=== PATIENT | female | born 1945 | race Caucasian/White ===

== ENCOUNTER 2016-07-15 11:26 | Emergency (ER) | payer OTHER ==
[~2016-07-15 11:26] MED LIST: ALBUTEROL17 GM INH; ASPIRIN81 MG PO; CELEXA PO; COUMADIN6 MG PO; DIFLUCAN200 MG PO; GLUCOPHAGE500 M1 PO; HYDROCODON-ACE1 EAC7 PO; HYDROCODONE-APA1 T55 PO; INCRUSE ELLI62.5 MCG INH; IPRAT-ALBUT 0.5-3 ML INH; LEVAQUIN250 MG PO; LISINOPRIL20 MG PO; LISINOPRIL5 MG PO; METOPROLOL SUCC25 MG PO; MILK OF MAGNESIA PO; MIRALAX17 GM DOB; NEO/POLYMYXIN/H10 M1 AU; OMEPRAZOLE40 M1 PO; PRAVASTATIN SOD40 MG PO; PREDNISONE10 MG PO; SPIRIVA18 MCG INH; VERAPAMIL HCL120 M1 PO
[2016-07-15 11:39] LABS: BASOPHIL# 0.1 X10e3 (0-0.3); BASOPHIL% 0.5 % (0-2.5); EOSINOPHIL# 0.1 X10e3 (0-0.7); EOSINOPHIL% 0.8 % (0.0-7.0); HEMATOCRIT 33.7 % (35.0-45.0); HEMOGLOBIN 11.1 gm/dL (12.0-16.0); LYMPHOCYTE# 1.8 X10e3 (1.0-3.5); LYMPHOCYTE% 15.3 % (17.0-45.0); MEAN CELL VOLUME 90.2 FL (83-96); MEAN CORPUSCULAR HEMOGLOBIN 29.7 PG (28-34); MEAN CORPUSCULAR HGB CONC 32.9 g/dL (30-36); MEAN PLATELET VOLUME 7.4 FL (6.5-11.5); MONOCYTE# 1.2 X10e3 (0-1.0); MONOCYTE% 10.6 % (3.0-12.0); NEUTROPHIL# 8.5 X10e3 (1.5-7.1); NEUTROPHIL% 72.8 % (40-75); PLATELET COUNT 304 X10e3 (140-420); RED BLOOD COUNT 3.74 X10e (3.90-5.30); RED CELL DISTRIBUTION WIDTH 16.5 % (11.0-15.5); WHITE BLOOD COUNT 11.7 X10e3 (4.0-10.5)
[2016-07-15 11:42] LABS: DIFF IND NO
[2016-07-15 12:05] LABS: PARTIAL THROMBOPLASTIN TIME 56.9 SECONDS (23.5-31.3)
[2016-07-15 12:08] LABS: PROTHROMBIN TIME (PATIENT) 79.3 SECONDS (9.6-11.5)
[2016-07-15 12:13] LABS: BILIRUBIN,TOTAL 0.4 mg/dL (0.2-2.0); GLOM FILT RATE Estimated 58.3 mL/min (>60); POTASSIUM 3.5 mmol/L (3.5-5.1)
== END 2016-07-15 12:41 | disposition home or self-care (01) ==
LOC: CED 11:26
PROVIDERS: Emergency Medicine; Student in an Organized Health Care Education/Training Program
DX: R79.1 Abnormal coagulation profile (principal); I10 Essential (primary) hypertension; E11.9 Type 2 diabetes mellitus without complications; I48.91 Unspecified atrial fibrillation; Z90.710 Acquired absence of both cervix and uterus; Z88.0 Allergy status to penicillin
CPT/HCPCS: 36415; 80053; 85025; 85610; 85730; 99283

== ENCOUNTER → 2016-08-02 | Outpatient (CLI) | payer OTHER | END | disposition home or self-care (01) | LOC: CRAD 10:42 | DX: R13.10 Dysphagia, unspecified (principal) | CPT/HCPCS: 74230; 92611; G8996-GN; G8997-GN; G8998-GN ==

== ENCOUNTER → 2016-09-14 | Outpatient (CLI) | payer OTHER ==
--- NOTE | ~2016-09-14 | HM ---
Unit #: [id number] #: [id number] Patient: TRISH NEWMAN [id number] [address] [place], [place] [address] [id number] MR#: [id number] NAME: TRISH NEWMAN. : 1945 SEX: F STUDY DATE/TIME: UNIT: [facility] ROOM: STUDY DESCRIPTION: Holter Monitor Attending Physician: Araceli Zapata A.P.R.N. Primary Care Physician: Brittany Gutiérrez A.P.R.N. CARDIOLOGY REPORT EXAM Holter Monitor DATE APPLIED 09/14/2016 DATE SCANNED 09/15/2016 ORDERED BY Caleb Zapata A.P.R.N. READ BY Jessica Hernández M.D. INDICATION Bradycardia. SUMMARY The patient was monitored for 24 hours. A total of 95,351 QRS complexes were analyzed. Average heart rate was 67 beats/minute, minimum heart rate of 47 beats/minute, maximum heart rate 124 beats/minute. Minimum heart rate occurred at 7:16 a.m., and the maximum at approximately 4 p.m. There were no pauses. The rhythm was sinus throughout. Supraventricular Ectopy: 49 isolated beats, with no runs. Ventricular Ectopy: 26 isolated beats, with no runs. Symptoms: None. Patient Activated Events: None. IMPRESSION Normal Holter monitor, with normal distribution of heart rates, normal average, minimum and maximum heart rate. It should be noted that during sleep there were spikes of high heart rates. Activity during these times is unknown, whether related to sleep disorder, or to using the restroom. These spikes occurred nearly every 60 to 90 minutes. Unit #: [id number] #: [id number] Patient: TRISH NEWMAN Dictated by... Jacklyn Jackson/lucy TD: 09/18/2016 08:22 JOB #: [id number] CARDIOLOGY REPORT Page 1 of 1 X Jamil Hernández MD HOLTER MONITOR REPORT
== END | disposition home or self-care (01) ==
LOC: CEKG 07:12
DX: R00.1 Bradycardia, unspecified (principal)
CPT/HCPCS: 93225; 93226